=== PATIENT | female | born 1990 | race Caucasian/White ===

== ENCOUNTER 2018-02-25 03:22 | Outpatient (CLI) | payer MEDICAID | END 2018-02-25 08:40 | disposition home or self-care (01) | LOC: OBT 03:22 → L-D 03:23 → OBT 08:40 | DX: O62.9 Abnormality of forces of labor, unspecified (principal); Z3A.39 39 weeks gestation of pregnancy | CPT/HCPCS: 76815 ==

== ENCOUNTER 2018-02-26 06:49 | Inpatient (IN) | payer MEDICAID ==
[2018-02-26] MEDS ORDERED: MISOPROSTOL 200 MCG TAB PR (08:00)
[2018-02-26] MEDS ORDERED: BUTORPHANOL 2 MG INJ IV (08:00)
[2018-02-26] MEDS ORDERED: LIDOCAINE 1% (MPF) 30 ML INJ INJ (08:00)
[2018-02-26] MEDS ORDERED: METHYLERGONOVINE 0.2 MG INJ IM (08:00)
[2018-02-26] MEDS ORDERED: BUTORPHANOL 1 MG INJ IV (08:00)
[2018-02-26] MEDS ORDERED: OXYTOCIN 30 UNITS/LR 500 ML IV ×3 (08:00→09:30)
[2018-02-26] MEDS ORDERED: CARBOPROST 250 MCG INJ IM (08:00)
[2018-02-26 08:21] LABS: ADD MAN DIFF? NO
[2018-02-26 08:24] LABS: BASOPHILS % 0.2 % (0.0-2.0); EOSINOPHILS % 0.4 % (0.0-7.0); HEMATOCRIT 41.9 % (37.0-47.0); HEMOGLOBIN 14.3 g/dl (12.0-16.0); LYMPHOCYTES # 1.7 10^3/ul (0.8-2.9); LYMPHOCYTES % 19.7 % (15.0-51.0); MEAN CORPUSCULAR HEMOGLOBIN 31.5 pg (29.0-33.0); MEAN CORPUSCULAR HGB CONC 34.1 g/dl (32.0-37.0); MEAN CORPUSCULAR VOLUME 92.3 fl (82.0-101.0); MEAN PLATELET VOLUME 11.1 fl (7.4-10.4); MONOCYTE # 0.6 10^3/ul (0.3-0.9); MONOCYTES % 6.8 % (0.0-11.0); NEUTROPHIL # 6.2 10^3/ul (1.6-7.5); NEUTROPHILS % 72.5 % (39.0-77.0); PLATELET COUNT 211 10^3/UL (140-415); RED BLOOD COUNT 4.54 10^6/ul (4.20-5.40); RED CELL DISTRIBUTION WIDTH 13.2 % (11.5-14.5)
[2018-02-26 08:24] LABS: WHITE BLOOD COUNT 8.5 10^3/ul (4.8-10.8)
[2018-02-26] MEDS: LACTATED RINGER'S 1,000 ML IV* ×2 (08:39→09:46)
[2018-02-26 08:44] LABS: INR 0.84; PROTIME 11.6 Sec (11.9-14.9); PT RATIO 0.9
[2018-02-26 08:45] LABS: PARTIAL THROMBOPLASTIN TIME 29.8 Sec (25.0-35.0)
[2018-02-26] MEDS ORDERED: FENTAnyl 2MCG/ML-ROPIV 0.2% 100 ML BAG EPI (09:00)
[2018-02-26] MEDS ORDERED: DIPHENHYDRAMINE 50 MG INJ IV (09:00)
[2018-02-26] MEDS ORDERED: NALOXONE (0.4 MG/ML) INJ IV (09:00)
[2018-02-26] MEDS ORDERED: ONDANSETRON 4 MG INJ IV ×2 (09:00→17:30)
[2018-02-26 09:23] LABS: HEPATITIS B SURFACE ANTIGEN NEGATIVE (NEGATIVE)
[2018-02-26] MEDS: OXYTOCIN 30 UNITS/LR 500 ML IV ×2 (15:22→17:16)
[2018-02-26] MEDS: IBUPROFEN 600 MG TAB PO (17:29)
[2018-02-26] MEDS: WITCH HAZEL/GLYCERIN PAD PR (17:30)
[2018-02-26] MEDS: BENZOCAINE 20% 56 ML SPRAY TOP (17:30)
[2018-02-26] MEDS ORDERED: OXYCODONE/ASPIRIN (4.88/325) TAB PO ×2 (17:30)
[2018-02-26] MEDS ORDERED: DIBUCAINE 1% 30 GM OINT PR (17:30)
[2018-02-26] MEDS ORDERED: HYDROCODONE/APAP (5/325) TAB PO ×2 (17:30)
[2018-02-26] MEDS ORDERED: ACETAMINOPHEN 325 MG TAB PO (17:30)
[2018-02-26] MEDS: LANOLIN 7 GM TUBE TOP (17:30)
[2018-02-26 19:50] LABS: RAPID PLASMA REAGIN NONREACTIVE (NR)
[2018-02-26] MEDS: SENNA/DOCUSATE NA (8.6MG/50MG) TAB PO (21:43)
[2018-02-27] MEDS: IBUPROFEN 600 MG TAB PO ×5 (06:00→18:29)
[2018-02-27] MEDS: SENNA/DOCUSATE NA (8.6MG/50MG) TAB PO ×2 (08:15→20:55)
[2018-02-27 09:14] LABS: ADD MAN DIFF? NO
[2018-02-27 09:21] LABS: WHITE BLOOD COUNT 9.2 10^3/ul (4.8-10.8)
[2018-02-27 09:21] LABS: BASOPHILS % 0.3 % (0.0-2.0); EOSINOPHILS # 0.1 10^3/ul (0.0-0.5); EOSINOPHILS % 0.7 % (0.0-7.0); HEMATOCRIT 36.7 % (37.0-47.0); HEMOGLOBIN 12.1 g/dl (12.0-16.0); LYMPHOCYTES # 2.1 10^3/ul (0.8-2.9); LYMPHOCYTES % 22.9 % (15.0-51.0); MEAN CORPUSCULAR HEMOGLOBIN 30.9 pg (29.0-33.0); MEAN CORPUSCULAR VOLUME 93.6 fl (82.0-101.0); MEAN PLATELET VOLUME 11.8 fl (7.4-10.4); MONOCYTE # 0.7 10^3/ul (0.3-0.9); MONOCYTES % 7.5 % (0.0-11.0); NEUTROPHIL # 6.3 10^3/ul (1.6-7.5); NEUTROPHILS % 68.2 % (39.0-77.0); PLATELET COUNT 193 10^3/UL (140-415); RED BLOOD COUNT 3.92 10^6/ul (4.20-5.40); RED CELL DISTRIBUTION WIDTH 13.6 % (11.5-14.5)
[2018-02-28] MEDS: IBUPROFEN 600 MG TAB PO ×3 (01:11→12:10)
[2018-02-28] MEDS: MEASLES,MUMPS,RUBELLA VACCINE INJ SC* (09:00)
[2018-02-28] MEDS: SENNA/DOCUSATE NA (8.6MG/50MG) TAB PO (11:08)
== END 2018-02-28 16:38 | disposition home or self-care (01) | DRG 775 ==
LOC: OBT 06:49 → L-D 06:49 → OBT 07:30 → L-D 07:30 → PP1 16:30
PROVIDERS: Obstetrics & Gynecology
PROC: 10E0XZZ Delivery of Products of Conception, External Approach (ICD-10-PCS; principal; 2018-02-26)
PROC: 3E033VJ Introduction of Other Hormone into Peripheral Vein, Percutaneous Approach (ICD-10-PCS; 2018-02-26)
DX: O99.214 Obesity complicating childbirth (principal); Z68.41 Body mass index [BMI] 40.0-44.9, adult; E66.01 Morbid (severe) obesity due to excess calories; Z3A.39 39 weeks gestation of pregnancy; Z37.0 Single live birth
CPT/HCPCS: 62319; 76815; 85025; 85610; 85730; 86592; 86850; 86900; 86901; 87340